=== PATIENT | male | born 1980 | race Caucasian/White ===

== ENCOUNTER 2017-11-10 12:09 | Emergency (ER) | payer SELFPAY ==
--- NOTE | 2017-11-10 13:11 | EDPHYS ---
Physician Documentation [facility] Name: Demetrice Musa Age: 36 yrs Sex: Male : 1980 Arrival Date: 11/10/2017 Time: 12:12 Bed 9 Private MD: None, None ED Physician Luis Balbuena HPI: 11/10 13:04 This 36 yrs old Male presents to ER via Ambulatory with complaints of Ear cp Pain. 13:04 The patient presents with pain, that is acute. The complaints affect the left ear. cp Onset: The symptoms/episode began/occurred this morning. Associated signs and symptoms: Pertinent positives: nasal congestion, Pertinent negatives: fever, sinus trouble, sore throat. Severity of symptoms: in the emergency department the symptoms have improved mildly. Historical: - Allergies: 12:15 No Known Allergies; hj - Home Meds: 12:15 None [Active]; hj - PMHx: 12:15 None; hj - PSHx: 12:15 None; hj - Immunization history:: Adult Immunizations unknown. - Social history:: Smoking status: Patient uses tobacco products, Patient uses alcohol. ROS: 13:05 Eyes: Negative for injury, pain, redness, and discharge. cp 13:05 Constitutional: Negative for body aches, chills, fever, poor PO intake. 13:05 ENT: Positive for ear pain, nasal congestion, Negative for drainage from ear(s), sore throat, difficulty swallowing, difficulty handling secretions. 13:05 Cardiovascular: Negative for chest pain, edema, palpitations. 13:05 Respiratory: Negative for cough, shortness of breath, wheezing. 13:05 Abdomen/GI: Negative for abdominal pain, nausea, vomiting, diarrhea. 13:05 Skin: Negative for cellulitis, rash. 13:05 Neuro: Negative for headache, weakness. 13:05 All other systems are negative. Exam: 13:05 Head/Face: Normocephalic, atraumatic. cp 13:05 Constitutional: The patient appears in no acute distress, alert, awake, non-toxic, well developed, well nourished. 13:05 Eyes: Periorbital structures: appear normal, Conjunctiva: normal, no exudate, no injection, Sclera: no appreciated abnormality, Lids and lashes: appear normal, bilaterally. 13:05 ENT: External ear(s): are unremarkable, Ear canal(s): are normal, clear, TM's: bulging, is not appreciated, bilaterally, dullness, bilaterally, retracted bilaterally, Nose: nasal drainage, that is minimal, Mouth: Lips: moist, Oral mucosa: pink and intact, moist, Posterior pharynx: is normal, airway is patent, no erythema, no exudate, Tonsils: are normal in appearance, swelling, is not appreciated, erythema, is not appreciated, exudate, is not appreciated. 13:05 Neck: ROM/movement: is normal, is supple, without pain, no range of motions limitations, no nuchal rigidity, Lymph nodes: no appreciated lymphadenopathy. 13:05 Chest/axilla: Inspection: normal, Palpation: is normal, no crepitus, no tenderness. 13:05 Cardiovascular: Rate: normal, Rhythm: regular. 13:05 Respiratory: the patient does not display signs of respiratory distress, Respirations: normal, no use of accessory muscles, no retractions, no splinting, no tachypnea, labored breathing, is not present, Breath sounds: are clear throughout, no decreased breath sounds, no stridor, no wheezing. 13:05 Abdomen/GI: Exam negative for discomfort, distension, guarding, Inspection: abdomen appears normal. 13:05 Skin: cellulitis, is not appreciated, no rash present. Vital Signs: 12:16 BP 142 / 83; Pulse 95; Resp 18; Temp 98.5(TE); Pulse Ox 98% on R/A; Weight 99.79 kg; hj Height 6 ft. 4 in. (193.04 cm); Pain 8/10; 12:16 Body Mass Index 26.78 (99.79 kg, 193.04 cm) MDM: 13:04 Patient medically screened. cp 13:10 Data reviewed: vital signs, nurses notes, and as a result, I will discharge patient. cp Administered Medications: No medications were administered Disposition: 17:22 Co-signature as Attending Physician, Luis Balbuena MD I agree with the assessment and kdr plan of care. Disposition: 11/10/17 13:10 Discharged to Home. Impression: Other seasonal allergic rhinitis. - Condition is Stable. - Discharge Instructions: Allergies, Allergic Rhinitis. - Prescriptions for Zyrtec 10 mg Oral Tablet - take 1 tablet by ORAL route once daily As needed; 30 tablet. Prednisone 20 mg Oral Tablet - take 2 tablet by ORAL route once daily for 5 days; 10 tablet. - Work release form, Medication Reconciliation Form, Thank You Letter, Antibiotic Education, Prescription Opioid Use form. - Follow up: Private Physician; When: 2 - 3 days; Reason: Recheck today's complaints. - Problem is new. - Symptoms are unchanged. Signatures: Luis Balbuena MD MD kdr Williams, Irene, RN RN iw Coy Schulte RN RN Sung Dai PA PA cp
--- NOTE | 2017-11-10 13:11 | ER ---
Nurse's Notes [facility] Name: Demetrice Musa Age: 36 yrs Sex: Male : 1980 Arrival Date: 11/10/2017 Time: 12:12 Bed 9 Private MD: None, None Diagnosis: Other seasonal allergic rhinitis Presentation: 11/10 12:14 Presenting complaint: Patient states: my L ear is aching and i woke up with that in hj pain; pain 8/10; denies fever and chills;. Transition of care: patient was not received from another setting of care. Onset of symptoms was November 10, 2017. Initial Sepsis Screen: Does the patient meet any 2 criteria? No. Patient's initial sepsis screen is negative. Does the patient have a suspected source of infection? No. Patient's initial sepsis screen is negative. Care prior to arrival: None. 12:14 Method Of Arrival: Ambulatory 12:14 Acuity: CAROL 4 hj Triage Assessment: 12:15 General: Appears in no apparent distress. uncomfortable, Behavior is calm, cooperative, hj appropriate for age. Pain: Complains of pain in left ear. EENT: Reports pain in left ear. Historical: - Allergies: 12:15 No Known Allergies; hj - Home Meds: 12:15 None [Active]; hj - PMHx: 12:15 None; hj - PSHx: 12:15 None; hj - Immunization history:: Adult Immunizations unknown. - Social history:: Smoking status: Patient uses tobacco products, Patient uses alcohol. Screenin:49 Abuse screen: Denies threats or abuse. Denies injuries from another. Nutritional hj screening: No deficits noted. Tuberculosis screening: No symptoms or risk factors identified. Fall Risk None identified. Assessment: 12:52 General: Appears in no apparent distress. uncomfortable, Behavior is calm, cooperative, hj appropriate for age. Pain: Complains of pain in left ear. Neuro: Level of Consciousness is awake, alert, obeys commands, Oriented to person, place, time, situation, Appropriate for age. Cardiovascular: No deficits noted. Respiratory: No deficits noted. GI: No signs and/or symptoms were reported involving the gastrointestinal system. : No signs and/or symptoms were reported regarding the genitourinary system. EENT: Reports pain in left ear. Derm: No signs and/or symptoms reported regarding the dermatologic system. Musculoskeletal: No signs and/or symptoms reported regarding the musculoskeletal system. Vital Signs: 12:16 BP 142 / 83; Pulse 95; Resp 18; Temp 98.5(TE); Pulse Ox 98% on R/A; Weight 99.79 kg; hj Height 6 ft. 4 in. (193.04 cm); Pain 8/10; 12:16 Body Mass Index 26.78 (99.79 kg, 193.04 cm) ED Course: 12:12 Patient arrived in ED. mr 12:12 None, None is Private Physician. mr 12:15 Triage completed. hj 12:16 Arm band placed on right wrist. hj 12:48 Coy Schulte, IVON is Primary Nurse. hj 12:49 Patient has correct armband on for positive identification. Bed in low position. Call light in reach. 12:58 Sung Cruz PA is PHCP. cp 12:58 Luis Balbuena MD is Attending Physician. cp Administered Medications: No medications were administered Outcome: 13:10 Discharge ordered by . cp 13:23 Patient left the ED. iw Signatures: Dee Morris Clary Perry, RN RN Coy Schulte RN RN Sung Cruz PA PA cp Corrections: (The following items were deleted from the chart) 12:18 12:16 Pulse 95bpm; Resp 18bpm; Pulse Ox 98% RA; Temp 98.5F Temporal; 99.79 kg; Height 6 hj ft. 4 in.; BMI: 26.7; Pain 8/10; hj
== END 2017-11-10 13:23 | disposition home or self-care (01) ==
LOC: ER 12:09
DX: J30.2 Other seasonal allergic rhinitis (principal); F17.220 Nicotine dependence, chewing tobacco, uncomplicated
CPT/HCPCS: 99281

== ENCOUNTER 2017-11-17 17:08 | Emergency (ER) | payer SELFPAY ==
--- NOTE | 2017-11-17 17:42 | ER ---
Nurse's Notes [facility] Name: Demetrice Musa Age: 36 yrs Sex: Male : 1980 Arrival Date: 11/17/2017 Time: 17:08 Bed 11 Private MD: Diagnosis: Acute upper respiratory infection, unspecified Presentation: 11/17 17:20 Presenting complaint: Patient states: left ear pain since last night. Pt denies any aa5 other symptoms. Transition of care: patient was not received from another setting of care. Onset of symptoms was November 2017. Initial Sepsis Screen: Does the patient meet any 2 criteria? No. Patient's initial sepsis screen is negative. Does the patient have a suspected source of infection? No. Patient's initial sepsis screen is negative. Care prior to arrival: None. 17:20 Method Of Arrival: Ambulatory aa5 17:20 Acuity: CAROL 5 aa5 Historical: - Allergies: 17:21 No Known Allergies; aa5 - PMHx: 17:21 None; aa5 - PSHx: 17:21 None; aa5 - Immunization history:: Adult Immunizations up to date. - Social history:: Smoking status: Patient uses tobacco products, smokes one-half pack cigarettes per day. Screenin:22 Abuse screen: Denies threats or abuse. Nutritional screening: No deficits noted. aa5 Tuberculosis screening: No symptoms or risk factors identified. Fall Risk None identified. Assessment: 17:21 General: Appears comfortable, Behavior is calm, cooperative. Pain: Complains of pain in aa5 left ear. Neuro: Level of Consciousness is awake, alert, obeys commands, Oriented to person, place, time, situation. Cardiovascular: No deficits noted. Respiratory: Airway is patent Respiratory effort is even, unlabored, Respiratory pattern is regular, symmetrical. GI: No signs and/or symptoms were reported involving the gastrointestinal system. : No signs and/or symptoms were reported regarding the genitourinary system. EENT: Reports pain in left ear. Derm: Skin is pink, warm \T\ dry. Musculoskeletal: Range of motion: intact in all extremities. Vital Signs: 17:21 BP 120 / 82; Pulse 77; Resp 16 S; Temp 98.3(TE); Pulse Ox 97% on R/A; Weight 99.79 kg aa5 (R); Height 6 ft. 4 in. (193.04 cm) (R); Pain 8/10; 17:21 Body Mass Index 26.78 (99.79 kg, 193.04 cm) aa5 ED Course: 17:08 Patient arrived in ED. as 17:14 [facility]isel[facility]C [facility] snw 17:14 Koko Lopez MD is Attending Physician. snw 17:19 Angelica Barros, RN is Primary Nurse. aa5 17:20 Triage completed. aa5 17:20 Arm band placed on Patient placed in an exam room. aa5 17:20 Patient has correct armband on for positive identification. Call light in reach. aa5 17:47 No provider procedures requiring assistance completed. iw 17:47 Patient did not have IV access during this emergency room visit. iw Administered Medications: No medications were administered Outcome: 17:41 Discharge ordered by . snw 17:47 Discharged to home ambulatory. iw 17:47 Condition: good 17:47 Discharge instructions given to patient, Instructed on discharge instructions, follow up and referral plans. medication usage, Demonstrated understanding of instructions, follow-up care, medications, Prescriptions given X 2. 17:49 Patient left the ED. iw Signatures: Griselda Pradhan FNP-C PRINCIPAL STATISTICAL PROGRAMMER-CsnMaria Del Carmen Suero as Clary Perry, RN RN iw Angelica Barros, RN RN aa5
--- NOTE | 2017-11-17 17:42 | EDPHYS ---
Physician Documentation [facility] Name: Demetrice Musa Age: 36 yrs Sex: Male : 1980 Arrival Date: 11/17/2017 Time: 17:08 Bed 11 Private MD: ED Physician Koko Lopez HPI: 11/17 17:37 This 36 yrs old Male presents to ER via Ambulatory with complaints of Ear snw Pain. 17:37 The patient presents with a fullness, pain, that is acute. The complaints affect the snw left ear. Onset: The symptoms/episode began/occurred suddenly, yesterday. Associated signs and symptoms: Pertinent positives: sore throat. Severity of symptoms: At their worst the symptoms were moderate. It is unknown whether or not the patient has had similar symptoms in the past. The patient has not recently seen a physician. Historical: - Allergies: 17:21 No Known Allergies; aa5 - PMHx: 17:21 None; aa5 - PSHx: 17:21 None; aa5 - Immunization history:: Adult Immunizations up to date. - Social history:: Smoking status: Patient uses tobacco products, smokes one-half pack cigarettes per day. ROS: 17:37 Constitutional: Negative for fever, chills, and weight loss, Eyes: Negative for injury, snw pain, redness, and discharge, Neck: Negative for injury, pain, and swelling, Cardiovascular: Negative for chest pain, palpitations, and edema, Respiratory: Negative for shortness of breath, cough, wheezing, and pleuritic chest pain, Abdomen/GI: Negative for abdominal pain, nausea, vomiting, diarrhea, and constipation, Back: Negative for injury and pain, : Negative for injury, bleeding, discharge, and swelling, MS/Extremity: Negative for injury and deformity, Skin: Negative for injury, rash, and discoloration, Neuro: Negative for headache, weakness, numbness, tingling, and seizure. 17:37 ENT: Positive for ear pain. Exam: 17:37 Constitutional: This is a well developed, well nourished patient who is awake, alert, snw and in no acute distress. Head/Face: Normocephalic, atraumatic. Eyes: Pupils equal round and reactive to light, extra-ocular motions intact. Lids and lashes normal. Conjunctiva and sclera are non-icteric and not injected. Cornea within normal limits. Periorbital areas with no swelling, redness, or edema. Neck: Trachea midline, no thyromegaly or masses palpated, and no cervical lymphadenopathy. Supple, full range of motion without nuchal rigidity, or vertebral point tenderness. No Meningismus. Chest/axilla: Normal chest wall appearance and motion. Nontender with no deformity. No lesions are appreciated. Cardiovascular: Regular rate and rhythm with a normal S1 and S2. No gallops, murmurs, or rubs. Normal PMI, no JVD. No pulse deficits. Respiratory: Lungs have equal breath sounds bilaterally, clear to auscultation and percussion. No rales, rhonchi or wheezes noted. No increased work of breathing, no retractions or nasal flaring. Abdomen/GI: Soft, non-tender, with normal bowel sounds. No distension or tympany. No guarding or rebound. No evidence of tenderness throughout. Back: No spinal tenderness. No costovertebral tenderness. Full range of motion. Skin: Warm, dry with normal turgor. Normal color with no rashes, no lesions, and no evidence of cellulitis. MS/ Extremity: Pulses equal, no cyanosis. Neurovascular intact. Full, normal range of motion. Neuro: Awake and alert, GCS 15, oriented to person, place, time, and situation. Cranial nerves II-XII grossly intact. Motor strength 5/5 in all extremities. Sensory grossly intact. Cerebellar exam normal. Normal gait. 17:37 ENT: Ear canal(s): are normal, TM's: fluid levels, bilaterally, Nose: is normal, Mouth: is normal, Posterior pharynx: erythema, that is moderate, Voice: is normal. Vital Signs: 17:21 BP 120 / 82; Pulse 77; Resp 16 S; Temp 98.3(TE); Pulse Ox 97% on R/A; Weight 99.79 kg aa5 (R); Height 6 ft. 4 in. (193.04 cm) (R); Pain 8/10; 17:21 Body Mass Index 26.78 (99.79 kg, 193.04 cm) aa5 MDM: 17:19 Patient medically screened. snw 17:43 Data reviewed: vital signs, nurses notes. Data interpreted: Pulse oximetry: on room air snw is 97 %. Interpretation: normal. Counseling: I had a detailed discussion with the patient and/or guardian regarding: the historical points, exam findings, and any diagnostic results supporting the discharge/admit diagnosis, the presence of at least one elevated blood pressure reading (>120/80) during this emergency department visit, the need for outpatient follow up, to return to the emergency department if symptoms worsen or persist or if there are any questions or concerns that arise at home. Special discussion: I have referred the patient to see his PCP for further evaluation of high blood pressure. Based on the history and exam findings, there is no indication for further emergent testing or inpatient evaluation. I discussed with the patient/guardian the need to see the primary care provider for further evaluation of the symptoms. Administered Medications: No medications were administered Disposition: 11/17/17 17:41 Discharged to Home. Impression: Acute upper respiratory infection, unspecified. - Condition is Stable. - Discharge Instructions: Upper Respiratory Infection, Adult, Cool Mist Vaporizers, Rehydration, Adult. - Prescriptions for Zyrtec 10 mg Oral Tablet - take 1 tablet by ORAL route once daily As needed; 20 tablet. Prednisone 20 mg Oral Tablet - take 2 tablet by ORAL route once daily for 5 days; 10 tablet. - Work release form, Medication Reconciliation Form, Thank You Letter, Antibiotic Education, Prescription Opioid Use form. - Follow up: Private Physician; When: 2 - 3 days; Reason: Recheck today's complaints, Continuance of care, Re-evaluation by your physician. Follow up: Emergency Department; When: As needed; Reason: Worsening of condition. Addendum: 11/19/2017 10:54 Co-signature as Attending Physician, Koko Lopez MD I agree with the assessment and w a plan of care. Signatures: Griselda Pradhan, CONTROL ROOM OPERATOR-C CONTROL ROOM OPERATOR-Csnw Clary Perry RN RN iw Angelica Barros RN RN aa5 Koko Lopez MD MD ok Corrections: (The following items were deleted from the chart) 11/17 17:49 17:41 11/17/2017 17:41 Discharged to Home. Impression: Acute upper respiratory iw infection, unspecified. Condition is Stable. Forms are Medication Reconciliation Form, Thank You Letter, Antibiotic Education, Prescription Opioid Use. Follow up: Private Physician; When: 2 - 3 days; Reason: Recheck today's complaints, Continuance of care, Re-evaluation by your physician. Follow up: Emergency Department; When: As needed; Reason: Worsening of condition. snw
== END 2017-11-17 17:49 | disposition home or self-care (01) ==
LOC: ER 17:08
DX: J06.9 Acute upper respiratory infection, unspecified (principal)
CPT/HCPCS: 99282